=== PATIENT | male | born 1970 ===

== ENCOUNTER 2017-09-01 07:35 | Day surgery (SDC) | payer OTHER ==
[~2017-09-01 07:35] MED LIST: FOLIC ACID1 MG PO; FOSAMAX70 MG PO; HUMIRA40 MG/0.2; ISONIAZID300 MG PO; RESTORIL30 M1 PO; [UNRECOGNIZED DRUG - OTHER] IJ
== END 2017-09-01 18:40 | disposition home or self-care (01) ==
LOC: CIR.AMB 07:35
DX: S62.602A Fracture of unspecified phalanx of right middle finger, initial encounter for closed fracture (principal); S62.604A Fracture of unspecified phalanx of right ring finger, initial encounter for closed fracture; S62.606A Fracture of unspecified phalanx of right little finger, initial encounter for closed fracture

== ENCOUNTER 2023-01-27 06:00 | Day surgery (SDC) | payer OTHER ==
[~2023-01-27] VITALS: Ht 190.5 cm; Wt 113.4 kg
[~2023-01-27 06:00] MED LIST changes: +GLUMETZA500 MG PO
== END 2023-01-27 11:50 | disposition home or self-care (01) ==
LOC: CIR.AMB 06:00
PROVIDERS: ATTEND Orthopaedic Surgery Hand Surgery
DX: D17.21 Benign lipomatous neoplasm of skin and subcutaneous tissue of right arm (principal); M25.831 Other specified joint disorders, right wrist; I10 Essential (primary) hypertension; Z20.822 Contact with and (suspected) exposure to COVID-19; E11.9 Type 2 diabetes mellitus without complications; R22.31 Localized swelling, mass and lump, right upper limb